=== PATIENT | male | born 1985 | race Two or more races ===

== ENCOUNTER 2025-03-19 11:03 | Emergency (ER) | payer OTHER ==
[~2025-03-19] VITALS: Ht 177.8 cm; Wt 91.2 kg
[2025-03-19 11:19] VITALS: TEMP 98
[2025-03-19] MEDS ORDERED: CYCL5TAB PO (12:50)
[2025-03-19] MEDS ORDERED: IBUP-1955 PO (12:50)
[2025-03-19] MEDS: KETOROLAC TROMETHAMINE 15 MG/ML VIAL IM ONE (13:00)
[2025-03-19] MEDS: CYCLOBENZAPRINE 10 MG TABLET PO ONE (13:00)
[2025-03-19 13:10] VITALS: BP 129/75; O2SAT 98
== END 2025-03-19 13:15 | disposition home or self-care (01) ==
LOC: ER 11:10
DX: S76.012A Strain of muscle, fascia and tendon of left hip, initial encounter (principal); S56.912A Strain of unspecified muscles, fascia and tendons at forearm level, left arm, initial encounter; S86.911A Strain of unspecified muscle(s) and tendon(s) at lower leg level, right leg, initial encounter; S86.912A Strain of unspecified muscle(s) and tendon(s) at lower leg level, left leg, initial encounter; Z60.2 Problems related to living alone; V09.9XXA Pedestrian injured in unspecified transport accident, initial encounter; Y93.55 Activity, bike riding; Y92.89 Other specified places as the place of occurrence of the external cause; Y99.8 Other external cause status
CPT/HCPCS: 99284; 96372; 73080; 73503; 73564 ×2; J1885; 73502